=== PATIENT | female | born 1980 | race Caucasian/White ===

== ENCOUNTER 2017-09-05 10:54 | Day surgery (SDC) | payer OTHER ==
[2017-09-05] MEDS ORDERED: LIDOCAINE 2% INJ 100 MG/5 ML SDV (FOR ANES.) As Ordered (11:45)
[2017-09-05] MEDS ORDERED: PROPOFOL 200 MG/20 ML VIAL As Ordered ×3 (11:45→13:37)
[2017-09-05] MEDS ORDERED: fentaNYL 100 MCG/2 ML INJECTION (J3010) As Ordered (11:47)
[2017-09-05] MEDS ORDERED: MIDAZOLAM INJ 2 MG/2 ML VIAL (J2250) As Ordered (11:47)
[2017-09-05] MEDS ORDERED: BUPIVACAINE HCL 0.25% 30 ML VIAL As Ordered (12:25)
[2017-09-05] MEDS ORDERED: LIDOCAINE 1% SDV INJ 30 ML VIAL As Ordered (12:25)
[2017-09-05] MEDS ORDERED: KETOROLAC 60 MG/2 ML VIAL (J1885) As Ordered (13:28)
[2017-09-05] MEDS ORDERED: ONDANSETRON 4MG/2ML VIAL (J2405) As Ordered (13:30)
== END 2017-09-05 14:57 | disposition home or self-care (01) ==
LOC: M SDC 14:57
DX: D03.62 Melanoma in situ of left upper limb, including shoulder (principal); F17.210 Nicotine dependence, cigarettes, uncomplicated; Z79.899 Other long term (current) drug therapy
CPT/HCPCS: 14020